=== PATIENT | female | born 1965 | race Caucasian/White ===

== ENCOUNTER → 2017-07-28 | Outpatient (CLI) | payer BC, OTHER | END | disposition home or self-care (01) | LOC: C.RDSM 08:00 | PROVIDERS: ATTEND Physical Medicine & Rehabilitation Sports Medicine | DX: S73.199A Other sprain of unspecified hip, initial encounter (principal); M76.891 Other specified enthesopathies of right lower limb, excluding foot; X58.XXXA Exposure to other specified factors, initial encounter ==

== ENCOUNTER → 2017-08-13 | Outpatient (CLI) | payer BC ==
[~2017-08-13] MED LIST: GADAVIST IV PRN
--- NOTE | 2017-08-13 11:24 | DIAGNOSTIC IMAGING REPORT ---
FLUOROSCOPIC GUIDED RIGHT HIP ARTHROGRAM FLUOROSCOPY TIME: 6 seconds. HISTORY: Right hip pain. PROCEDURE: After obtaining written informed consent, the patient was placed supine on the fluoroscopy table. A suitable site for needle insertion was marked using fluoroscopic guidance. The right hip was prepped and draped in the usual sterile fashion. 1% lidocaine was used for skin, subcutaneous and deep soft tissue anesthesia. Under intermittent fluoroscopic guidance, a 22 gauge 3.5 inch spinal needle was inserted into the right hip joint. A total of 14 cc of one-to-one mixture of dilute Magnevist (0.1 cc in 10 cc saline) and Optiray 300 were injected. The needle was then removed. There were no apparent complications. The patient was transported to for further imaging. IMPRESSION: Fluoroscopic-guided right hip arthrogram without immediate complication. Total injected volume was 14 cc. MR portion of the examination will be dictated separately. Electronically signed by: David Culver M.D. 08/13/2017 11:22 AM Dictated Date/Time: 08/13/2017 11:20 AM
--- NOTE | 2017-08-13 11:24 | DIAGNOSTIC IMAGING REPORT ---
FLUOROSCOPIC GUIDED LEFT HIP ARTHROGRAM FLUOROSCOPY TIME: 6 seconds. HISTORY: Left hip pain. PROCEDURE: After obtaining written informed consent, the patient was placed supine on the fluoroscopy table. A suitable site for needle insertion was marked using fluoroscopic guidance. The left hip was prepped and draped in the usual sterile fashion. 1% lidocaine was used for skin, subcutaneous and deep soft tissue anesthesia. Under intermittent fluoroscopic guidance, a 22 gauge 3.5 inch spinal needle was inserted into the left hip joint. A total of 14 cc of one-to-one mixture of dilute Magnevist (0.1 cc in 10 cc saline) and Optiray 300 were injected. The needle was then removed. There were no apparent complications. The patient was transported to for further imaging. IMPRESSION: Fluoroscopic-guided left hip arthrogram without immediate complication. Total injected volume was 14 cc. MR portion of the examination will be dictated separately. Electronically signed by: David Culver M.D. 08/13/2017 11:23 AM Dictated Date/Time: 08/13/2017 11:22 AM
--- NOTE | 2017-08-13 12:17 | DIAGNOSTIC IMAGING REPORT ---
MRI THE RIGHT HIP POST GADOLINIUM ARTHROGRAM CLINICAL HISTORY: Right hip and groin pain. COMPARISON STUDY: Conventional radiographic study dated 07/28/2017 FINDINGS: Imaging was performed in the sagittal axial and coronal planes. There are no suspicious areas of marrow replacement. There is no evidence of avascular necrosis. There is mild cartilaginous thinning. No labral tears are evident. Degenerative changes are present within the superior aspect of the glenoid labrum IMPRESSION: Mild degenerative changes. No labral tears identified. No evidence of avascular necrosis. Electronically signed by: Noe Reddy M.D. 08/13/2017 12:15 PM Dictated Date/Time: 08/13/2017 11:43 AM
--- NOTE | 2017-08-13 12:19 | DIAGNOSTIC IMAGING REPORT ---
LEFT LOWER EXTREMITY JOINT W/ CLINICAL HISTORY: 51 years-old Female presenting with MITUL HIPS, IMPINGEMENT SYNDROME. TECHNIQUE: Multisequence, multiplanar MR imaging of the left hip was performed after the administration of intra-articular contrast. IV contrast: None. COMPARISON: 01/30/2015. FINDINGS: Normal configuration of the acetabulum and femoral neck. No bony edema. Intra-articular contrast mildly distends the hip joint. Small amount of extra articular contrast is also noted. Prominent sulcus adjacent to the superior labrum (series 4 image 12). Prominent anterior superior cleft also noted (series 6 image 14). Apparent defect in the anterior inferior region likely represents a prominent transverse ligament labral junction sulcus (series 4 image 9). No abnormal intrasubstance signal is appreciated within the labrum. Articular cartilage is intact. Normal muscle bulk and muscle signal intensity. Intrapelvic contents are grossly normal in appearance. IMPRESSION: 1. No significant bony abnormality. No significant degenerative change. Electronically signed by: Anupam Walsh M.D. 08/13/2017 12:18 PM Dictated Date/Time: 08/13/2017 11:57 AM
== END | disposition home or self-care (01) ==
LOC: C.MRIBC 09:32
PROVIDERS: ATTEND Physical Medicine & Rehabilitation Sports Medicine
DX: S73.199A Other sprain of unspecified hip, initial encounter (principal); X58.XXXA Exposure to other specified factors, initial encounter; M76.891 Other specified enthesopathies of right lower limb, excluding foot

== ENCOUNTER → 2017-09-04 | Outpatient (CLI) | payer BC ==
[2017-09-04 13:39] LABS: BASO % 0.3 %; BASO ABS # 0.02 K/uL (0-0.2); COMPLETE YES; EOS % 0.7 %; HEMATOCRIT 40.4 % (37-47); IG% 0.2 %; LYMPH % 27.5 %; LYMPH ABS # 1.67 K/uL (1.2-3.4); MEAN CORPUSCULAR HEMOGLOBIN 30.8 pg (25-34); MEAN CORPUSCULAR HGB CONC 33.4 g/dl (32-36); MEAN PLATELET VOLUME 9.6 fL (7.4-10.4); MONO % 7.6 %; NEUT % 63.7 %; PLATELET COUNT 399 K/uL (130-400); RED BLOOD COUNT 4.39 M/uL (4.2-5.4); WHITE BLOOD COUNT 6.07 K/uL (4.8-10.8)
[2017-09-04 14:12] LABS: CHOLESTEROL/HDL RATIO 1.7
== END | disposition home or self-care (01) ==
LOC: C.LABBC 09:46
PROVIDERS: ATTEND Internal Medicine Geriatric Medicine
DX: M85.80 Other specified disorders of bone density and structure, unspecified site (principal); M16.9 Osteoarthritis of hip, unspecified; D47.3 Essential (hemorrhagic) thrombocythemia

== ENCOUNTER → 2017-09-29 | Outpatient (CLI) | payer BC | END | disposition home or self-care (01) | LOC: C.PAPS 11:50 | PROVIDERS: ATTEND Obstetrics & Gynecology | DX: Z01.419 Encounter for gynecological examination (general) (routine) without abnormal findings (principal); R87.610 Atypical squamous cells of undetermined significance on cytologic smear of cervix (ASC-US) ==

== ENCOUNTER → 2017-12-19 | Outpatient (CLI) | payer BC ==
--- NOTE | 2017-12-22 07:44 | MAMMOGRAPHY REPORT ---
BILATERAL DIGITAL SCREENING MAMMOGRAM TOMOSYNTHESIS WITH CAD: 12/19/2017 TECHNIQUE: Breast tomosynthesis in addition to standard 2D mammography was performed. Current study was also evaluated with a Computer Aided Detection (CAD) system. COMPARISON: Comparison is made to exams dated: 08/25/2014 mammogram - [facility] an d 01/25/2009. BREAST COMPOSITION: The tissue of both breasts is heterogeneously dense, which may obscure small mas ses. FINDINGS: No suspicious masses, calcifications, or areas of architectural distortion are noted in ei ther breast. There has been no significant interval change compared to prior exams. IMPRESSION: ACR BI-RADS CATEGORY 1: NEGATIVE There is no mammographic evidence of malignancy. A 1 year screening mammogram is recommended. The pa tient will receive written notification of the results. Approximately 10% of breast cancers are not detected with mammography. A negative mammographic report should not delay biopsy if a clinically suggestive mass is present. Mei Narvaez M.D. ah/:12/19/2017 16:07:27 Route Delivery Supervisor: Daysi PARADA(Nic)(M), [facility] letter sent: Normal 1/2 BI-RADS Code: ACR BI-RADS Category 1: Negative
== END | disposition home or self-care (01) ==
LOC: C.MAMM 08:26
PROVIDERS: ATTEND Obstetrics & Gynecology
DX: Z12.31 Encounter for screening mammogram for malignant neoplasm of breast (principal)

== ENCOUNTER → 2017-12-23 | Outpatient (CLI) | payer BC ==
--- NOTE | 2017-12-23 14:37 | MAMMOGRAPHY REPORT ---
SCREENING ULTRASOUND OF BOTH BREASTS: 12/23/2017 CLINICAL HISTORY: 52-year-old woman with a personal history of heterogeneously dense breasts presents for additional screening with ultrasound. She also has a family history of breast cancer involving a sister who was recently diagnosed, and a family history of lymphoma. COMPARISON: Comparison is made to exams dated: 01/25/2009, 08/25/2014 mammogram, and 12/19/2017 mammogr [facility]. FINDINGS: Real-time high-resolution sonographic evaluation was performed throughout each breast incl uding the retroareolar aspect of the breasts and both axillae. Morphologically normal lymph nodes ar e identified in the right and left axilla, within cortices. No suspicious lymphadenopathy is identif ied. The breast parenchymal echotexture is heterogeneousdense. In the 2:00 left breast, 5 cm from the ni pple, there is an oval parallel well-circumscribed hypoechoic mass with possible minimal posterior ac oustic enhancement preceded. No posterior shadowing or internal vascularity demonstrated. It measur es 4.5 x 2.5 x 5.0 mm. This benign-appearing mass could represent a complicated cyst or a fibroadeno ma. A very short follow-up targeted ultrasound is recommended to ensure stability in 3 months. No o ther discrete solid or cystic mass is seen throughout the remainder of the left breast or in the righ t breast on whole breast screening ultrasound. No focal skin thickening appreciated. No drainable f luid collection. IMPRESSION: ACR-BI-RADS CATEGORY 3: PROBABLY BENIGN - FOLLOW-UP RECOMMENDED 1. There is a benign-appearing hypoechoic solid versus cystic mass measuring 5 mm in the 2:00 left b reast, 5 cm from the nipple that could represent a complicated cyst or a solid mass such as a fibroad enoma. A very short follow-up targeted left breast ultrasound is recommended to ensure stability in 3 months. 2. No other suspicious solid or cystic mass identified throughout the remainder of each breast on wh ole breast screening ultrasound. 3. No suspicious right or left axillary lymphadenopathy identified. These results and recommendations were discussed with the patient at the time of the exam. She tenta tively scheduled the follow-up appointment prior to leaving our department. Coleen Baldwin M.D. ay/:12/23/2017 14:16:38 Combination Man: Radha PARADA(R)(M), [facility] letter sent: Follow Up Recommended 3 BI-RADS Code: ACR-BI-RADS Category 3: Probably Benign
== END | disposition home or self-care (01) ==
LOC: C.MAMM 13:01
PROVIDERS: ATTEND Internal Medicine Geriatric Medicine
DX: N63.21 Unspecified lump in the left breast, upper outer quadrant (principal)

== ENCOUNTER → 2018-02-16 | Outpatient (CLI) | payer BC ==
--- NOTE | 2018-02-16 12:23 | DIAGNOSTIC IMAGING REPORT ---
CHEST 2 VIEWS ROUTINE CLINICAL HISTORY: R07.89 Atypical chest painR10.12 Acute LUQ pain COMPARISON STUDY: No previous studies for comparison. FINDINGS: The bones soft tissues and hemidiaphragms are normal. The cardiomediastinal silhouette is normal. The lungs are clear. The pulmonary vasculature is normal. IMPRESSION: Negative chest. The above report was generated using voice recognition software. It may contain grammatical, syntax or spelling errors. Electronically signed by: Kobe Hernandez M.D. 02/16/2018 12:22 PM Dictated Date/Time: 02/16/2018 12:22 PM
--- NOTE | 2018-02-16 12:25 | DIAGNOSTIC IMAGING REPORT ---
CERVICAL SPINE 3 VIEWS HISTORY: R20.2 Paresthesia of left armR20.2 Paresthesia of left leg COMPARISON: None. FINDINGS: The cervical spine is visualized from C1 through the superior endplate of T1. There is no fracture. 2 mm of retrolisthesis of C5 on C6, unchanged. Moderate disc space narrowing C5-C6 with tiny endplate osteophytes. Straightening of the cervical spine. Prevertebral soft tissues and the atlantodens interval are intact. IMPRESSION: No fracture within the cervical spine. No change in the moderate degenerative disc disease and retrolisthesis of C5-C6. Electronically signed by: David Culver M.D. 02/16/2018 12:24 PM Dictated Date/Time: 02/16/2018 12:22 PM
[2018-02-16 13:07] LABS: BASO % 0.6 %; BASO ABS # 0.03 K/uL (0-0.2); EOS % 0.8 %; EOS ABS # 0.04 K/uL (0-0.5); HEMATOCRIT 41.7 % (37-47); IG# 0.01 K/uL (0.00-0.02); LYMPH % 32.6 %; LYMPH ABS # 1.68 K/uL (1.2-3.4); MEAN CELL VOLUME 90.8 fL (80-100); MEAN CORPUSCULAR HEMOGLOBIN 30.5 pg (25-34); MEAN CORPUSCULAR HGB CONC 33.6 g/dl (32-36); MEAN PLATELET VOLUME 9.3 fL (7.4-10.4); MONO % 7.8 %; PLATELET COUNT 418 K/uL (130-400); RED CELL DISTRIBUTION WIDTH CV 14.2 % (11.5-14.5); RED CELL DISTRIBUTION WIDTH SD 46.3 fL (36.4-46.3); WHITE BLOOD COUNT 5.16 K/uL (4.8-10.8)
[2018-02-16 13:33] LABS: ALBUMIN 3.8 gm/dl (3.4-5.0); ALT/SGPT 26 U/L (12-78); AST/SGOT 24 U/L (15-37); BLOOD UREA NITROGEN 14 mg/dl (7-18); CALCIUM 9.1 mg/dl (8.5-10.1); CARBON DIOXIDE 30 mmol/L (21-32); CREATININE 0.66 mg/dl (0.60-1.20); GLUCOSE 94 mg/dl (70-99); POTASSIUM 3.9 mmol/L (3.5-5.1); SODIUM 138 mmol/L (136-145)
[2018-02-16 13:35] LABS: ALKALINE PHOSPHATASE 96 U/L (45-117); TOTAL PROTEIN 6.9 gm/dl (6.4-8.2)
== END | disposition home or self-care (01) ==
LOC: C.RADBC 11:41
PROVIDERS: ATTEND Family Medicine Adult Medicine
DX: R20.2 Paresthesia of skin (principal); R07.89 Other chest pain; R10.12 Left upper quadrant pain

== ENCOUNTER → 2018-02-20 | Outpatient (CLI) | payer BC ==
[~2018-02-20] MED LIST changes: -GADAVIST IV PRN; +OPTIRAY 320 IV PRN
--- NOTE | 2018-02-20 16:48 | DIAGNOSTIC IMAGING REPORT ---
ABD/PELVIS IV AND ORAL CONT CT DOSE: 271.99 mGy.cm HISTORY: Pain R10.12 Acute LUQ painN39.0 Acute UTISTAT results call [phone] TECHNIQUE: Multiaxial CT images of the abdomen and pelvis were performed following the use of intravenous and oral contrast. A dose lowering technique was utilized adhering to the principles of ALARA. COMPARISON STUDY: CT pelvis 02/20/2009 FINDINGS: Lung bases are clear. Liver enhances uniformly. 2.2 cm enhancing nodule anterior aspect right hepatic lobe felt to represent a benign hemangioma in gallbladder is negative for distention. Kidneys enhance uniformly. No evidence for hydronephrosis. 5 mm splenic cyst. The abdominal aorta is normal in course and caliber. The bowel pattern of the abdomen is nonobstructive. Normal appendix. Fibroid uterus which has been described previously. No significant free fluid within the pelvic cul-de-sac. Bladder is midline. IMPRESSION: 1. Fibroid uterus which has been described previously. 2. No acute process of the abdomen or pelvis. The above report was generated using voice recognition software. It may contain grammatical, syntax or spelling errors. Electronically signed by: Kobe Hernandez M.D. 02/20/2018 4:47 PM Dictated Date/Time: 02/20/2018 4:40 PM
== END | disposition home or self-care (01) ==
LOC: C.CTS 14:10
PROVIDERS: ATTEND Family Medicine Adult Medicine
DX: N39.0 Urinary tract infection, site not specified (principal); R10.12 Left upper quadrant pain

== ENCOUNTER → 2018-03-24 | Outpatient (CLI) | payer BC ==
--- NOTE | 2018-03-25 15:31 | MAMMOGRAPHY REPORT ---
ULTRASOUND OF LEFT BREAST: 03/24/2018 CLINICAL HISTORY: Very short follow-up of a probably benign 5 mm solid versus cystic mass in the 2:00 left breast, 5 cm from the nipple identified on whole breast screening ultrasound. COMPARISON: Comparison is made to exams dated: 12/23/2017 ultrasound, 12/19/2017 mammogram, 08/25/2014 mammogram - [facility], and 01/25/2009. FINDINGS: Targeted ultrasound was performed in the 2:00 axis of the left breast to reevaluate the enrique ign-appearing subcentimeter mass. In the 2:00 left breast, 5 cm from the nipple, there is an oval pa rallel circumscribed hypoechoic to anechoic mass measuring 3.4 x 2.2 x 4.9 mm. No definite posterior acoustic enhancement or posterior shadowing are appreciated. This appears similar in size to possib ly slightly decreased comparing to the prior ultrasound at which time it measured 4.5 x 2.5 x 5.0 mm. Given that it still does not meet the criteria for a simple cyst, another short follow-up targeted ultrasound is recommended in 3 months to ensure longer stability. IMPRESSION: ACR-BI-RADS CATEGORY 3: PROBABLY BENIGN - FOLLOW-UP RECOMMENDED The benign-appearing circumscribed parallel 5 mm mass in the 2:00 left breast identified on ultrasoun d appears stable to minimally decreased in size comparing to the prior ultrasound exam and likely rep resents a complicated cyst versus benign solid mass such as a fibroadenoma. Another 3 month follow-u p targeted left breast ultrasound is recommended to ensure longer stability. These results and recommendations were discussed with the patient at the time of the exam. She tenta tively scheduled the follow-up appointment prior to leaving our department. Coleen Baldwin M.D. ay/:03/24/2018 14:29:51 Machine Greaser: Daysi PARADA(Nic)(Gurjit), [facility] letter sent: Follow Up Recommended 3 BI-RADS Code: ACR-BI-RADS Category 3: Probably Benign
== END | disposition home or self-care (01) ==
LOC: C.MAMM 13:01
PROVIDERS: ATTEND Internal Medicine Geriatric Medicine
DX: N63.20 Unspecified lump in the left breast, unspecified quadrant (principal)

== ENCOUNTER → 2018-06-23 | Outpatient (CLI) | payer BC ==
--- NOTE | 2018-06-23 16:19 | MAMMOGRAPHY REPORT ---
ULTRASOUND OF LEFT BREAST: 06/23/2018 CLINICAL HISTORY: Patient presents for ultrasound follow-up in the left breast for a benign-appearing solid versus cystic mass seen in the 2:00 left breast, 5 cm from the nipple on prior ultrasound. COMPARISON: Bilateral screening mammograms dated 12/19/2017, 08/25/2014, 01/25/2009. Prior breast ultra sounds dated December 23, 2017, March 24, 2018. FINDINGS: Targeted ultrasound was performed in the 2:00 axis of the left breast. In the 2:00 left br east, 5 cm from the nipple, an oval parallel circumscribed solid versus cystic mass is again seen jamee suring 3.9 x 2.5 x 5.0 mm. This has not significantly changed comparing back to the December 23, 2017 ultrasound at which time it measured 4.5 x 2.5 x 5.0 mm. This could represent a complicated cyst or benign fibroadenoma. Given stability over 6 months it is probably benign but another six-month foll ow-up targeted left breast ultrasound is recommended to ensure longer stability. Annual bilateral sc reening mammography will also be due at that time. IMPRESSION: ACR-BI-RADS CATEGORY 3: PROBABLY BENIGN 1. Stable sonographic appearance of a benign-appearing complicated cyst versus solid mass in the 2:0 0 left breast, 5 cm from the nipple. Another six-month follow-up targeted left breast ultrasound is recommended to ensure longer stability. Annual bilateral screening mammography will also be due at t hat time. These results and recommendations were discussed with the patient at the time of the exam. Coleen Baldwin M.D. ay/:06/23/2018 14:56:27 Procedural Nurse: RT Rosie(Nic)(M), [facility] [address] letter sent: Follow Up Recommended 3 BI-RADS Code: ACR-BI-RADS Category 3: Probably Benign
== END | disposition home or self-care (01) ==
LOC: C.MAMM 08:53
PROVIDERS: ATTEND Internal Medicine Geriatric Medicine
DX: N63.20 Unspecified lump in the left breast, unspecified quadrant (principal)